=== PATIENT | male | born 1955 | race African-American/Black ===

== ENCOUNTER 2022-02-03 12:32 | Observation (INO) | payer MEDICARE, OTHER ==
[~2022-02-03] VITALS: Ht 185.4 cm; Wt 102.1 kg
[2022-02-03 13:23] LABS: BASOPHILS # (AUTO) 0.1 (0.0-0.1); BASOPHILS % 0.6 % (0.0-1.0); HEMATOCRIT 39.7 % (38.2-49.6); HEMOGLOBIN 13.5 g/dL (14.0-18.0); LYMPHOCYTES # (AUTO) 3.7 (1.0-3.2); LYMPHOCYTES % 41.3 % (18.0-39.1); MEAN CORPUSCULAR HEMOGLOBIN 29.3 pg (28-32); MEAN CORPUSCULAR VOLUME 86.3 fL (81-99); MONOCYTES # (AUTO) 0.8 (0.2-0.8); MONOCYTES % 8.6 % (4.4-11.3); NEUTROPHILS # (AUTO) 4.4 (2.1-6.9); NEUTROPHILS % 49.2 % (38.7-80.0); PLATELET COUNT 248 x10e3/uL (140-360); RED CELL DISTRIBUTION WIDTH 13.4 % (11.7-14.4)
[2022-02-03 13:35] LABS: INR 0.92; PROTHROMBIN TIME 13.2 seconds (11.9-14.5)
[2022-02-03 13:36] LABS: PARTIAL THROMBOPLASTIN TIME 22.7 seconds (23.8-35.5)
[2022-02-03 13:45] LABS: ANION GAP 12.7 mmol/L (8-16); CALCIUM 9.3 mg/dL (8.4-10.2); CREATININE, SERUM 0.86 mg/dL (0.72-1.25); POTASSIUM 3.7 mmol/L (3.5-5.1)
[2022-02-03] MEDS ORDERED: ONDANSETRON HCL INJ 2MG/ML 2ML 2 MG/ML VIAL IV PRN (14:15)
[2022-02-03] MEDS ORDERED: ATORVASTATIN CA20 MG PO (16:02)
[2022-02-03] MEDS ORDERED: HYDROCHLOROTHIA25 MG (16:02)
[2022-02-03] MEDS ORDERED: LISINOPRIL10 MG PO (16:02)
[2022-02-03] MEDS ORDERED: LASIX10 MG/ML PO (16:02)
[2022-02-03] MEDS ORDERED: DILANTIN100 MG PO (16:02)
[2022-02-03 16:17] VITALS: BP 151/80
[2022-02-03] MEDS: PHENYTOIN SODIUM EXT REL 100 MG CAP PO SCH (18:25)
[2022-02-03 18:26] VITALS: BP 151/80
[2022-02-03 18:27] VITALS: BP 151/80
[2022-02-03 19:45] VITALS: BP 141/79
[2022-02-03 20:59] VITALS: BP 141/79
[2022-02-03] MEDS ORDERED: BISACODYL 5 MG TAB EC PO ONE ×2 (23:15→23:45)
[2022-02-04] VITALS (7 sets, daily range): BP systolic 126–143; BP diastolic 74–91
[2022-02-04] MEDS ORDERED: BISACODYL 5 MG TAB EC PO ONE (00:15)
[2022-02-04] MEDS ORDERED: CITRATE OF MAGNESIA 300ML BOTTLE PO ONE ×2 (05:00→07:00)
[2022-02-04 05:04] LABS: BASOPHILS # (AUTO) 0.1 (0.0-0.1); BASOPHILS % 0.6 % (0.0-1.0); EOSINOPHILS % 0.1 % (0.0-6.0); HEMATOCRIT 38.9 % (38.2-49.6); HEMOGLOBIN 13.1 g/dL (14.0-18.0); LYMPHOCYTES % 34.4 % (18.0-39.1); MEAN CORPUSCULAR HEMOGLOBIN 28.9 pg (28-32); MEAN CORPUSCULAR HGB CONC 33.7 g/dL (31-35); MEAN CORPUSCULAR VOLUME 85.9 fL (81-99); MONOCYTES # (AUTO) 0.8 (0.2-0.8); MONOCYTES % 8.6 % (4.4-11.3); NEUTROPHILS # (AUTO) 4.9 (2.1-6.9); PLATELET COUNT 240 x10e3/uL (140-360); RED BLOOD COUNT 4.53 x10e6/uL (4.3-5.7); RED CELL DISTRIBUTION WIDTH 13.2 % (11.7-14.4)
[2022-02-04 05:34] LABS: ANION GAP 12.6 mmol/L (8-16); CREATININE, SERUM 0.81 mg/dL (0.72-1.25); POTASSIUM 3.6 mmol/L (3.5-5.1)
[2022-02-04] MEDS: SODIUM CHLORIDE 0.9% 1000ML 1,000 ML IV SCH ×3 (09:03→16:00)
[2022-02-04] MEDS: PHENYTOIN SODIUM EXT REL 100 MG CAP PO SCH ×2 (09:06→17:00)
[2022-02-04] MEDS: LISINOPRIL 10 MG TAB PO SCH (09:07)
[2022-02-04] MEDS: HYDROCHLOROTHIAZIDE 25 MG TAB PO SCH (09:07)
[2022-02-04] MEDS ORDERED: FENTANYL CITRATE/PF 100MCG/2 ML INJ ONE (12:50)
[2022-02-04] MEDS ORDERED: PROPOFOL IV EMULSION 10 MG/ML 20 ML VIAL ONE (16:13)
[2022-02-04] MEDS ORDERED: LIDOCAINE HCL 2% LOCAL INJ 5 ML SDV VIAL INJ ONE (16:13)
[2022-02-04] MEDS ORDERED: HYOSCYAMINE SULFATE 0.5 MG/ML INJ ONE ×2 (16:13→17:50)
[2022-02-04] MEDS ORDERED: HYDROCORTISONE ACETATE 25 MG/SUPP.RECT SUPP RC ONE (18:45)
[2022-02-05] VITALS: BP 119/71
[2022-02-05 04:00] VITALS: BP 123/72
[2022-02-05] MEDS: SODIUM CHLORIDE 0.9% 1000ML 1,000 ML IV SCH ×2 (08:00)
[2022-02-05 08:39] VITALS: BP 125/81
[2022-02-05] MEDS: HYDROCHLOROTHIAZIDE 25 MG TAB PO SCH (08:49)
[2022-02-05] MEDS: LISINOPRIL 10 MG TAB PO SCH (08:49)
[2022-02-05] MEDS: PHENYTOIN SODIUM EXT REL 100 MG CAP PO SCH (08:49)
[2022-02-05] MEDS ORDERED: HYDROCORTISONE ACETATE 25 MG/SUPP.RECT SUPP RC SCH (09:00)
[2022-02-05 09:30] VITALS: BP 125/81
[2022-02-05 11:31] VITALS: BP 129/72
[2022-02-05] MEDS ORDERED: ANUSOL-HC25 MG RC ×2 (16:21→16:38)
[2022-02-05 16:23] VITALS: BP 137/84
== END 2022-02-05 16:42 | disposition home or self-care (01) ==
LOC: ER 12:45 → ERHOLD 14:06 → INTOOBSV 14:06 → MED/SURG 15:33
DX: D12.0 Benign neoplasm of cecum (principal); K60.2 Anal fissure, unspecified; K64.9 Unspecified hemorrhoids; I10 Essential (primary) hypertension; G40.909 Epilepsy, unspecified, not intractable, without status epilepticus; Z91.041 Radiographic dye allergy status; Z09 Encounter for follow-up examination after completed treatment for conditions other than malignant neoplasm; Z86.718 Personal history of other venous thrombosis and embolism; G47.33 Obstructive sleep apnea (adult) (pediatric); K21.9 Gastro-esophageal reflux disease without esophagitis; Z01.812 Encounter for preprocedural laboratory examination; Z20.822 Contact with and (suspected) exposure to COVID-19
CPT/HCPCS: 36415 ×2; 45380; 45385; 80048; 80053; 85025 ×2; 85610; 85730; 88305; 94799 ×2; 99284; G0378 ×3; J1980; J2001; J2704; J3010; J7030 ×2; U0002; 45378